=== PATIENT | female | born 2000 | race Caucasian/White ===

== ENCOUNTER 2024-12-19 23:49 | Emergency (ER) | payer MEDICAID ==
[~2024-12-19] VITALS: Ht 162.6 cm; Wt 56.0 kg
[2024-12-19 23:53] VITALS: O2SAT 99
[2024-12-20 01:49] LABS: BASOPHILS % 1.1 % (0.0-2.0); DIFFERENTIAL COMMENT 0; EOSINOPHILS % 0.2 % (0.0-5.0); HEMATOCRIT. 43.4 % (36.0-48.0); HEMOGLOBIN. 14.8 g/dL (12.0-16.0); LYMPHOCYTES % 23.7 % (20.0-50.0); MEAN CORPUSCULAR HEMOGLOBIN 34.1 pg (28.0-32.0); MEAN CORPUSCULAR VOLUME 100.4 fL (81.0-99.0); MEAN PLATELET VOLUME 7.9 fl (7.4-10.4); MONOCYTES % 5.2 % (2.0-8.0); NEUTROPHILS % 69.8 % (40.0-76.0); PLATELET 234 x1000/uL (130-400); RED BLOOD CELL COUNT 4.33 mill/uL (4.2-5.4); RED CELL DISTRIBUTION WIDTH 14.2 % (11.6-14.6); WHITE BLOOD COUNT 7.2 x1000/uL (4.5-11.0)
[2024-12-20 02:05] LABS: CHLORIDE 109 mEq/L (98-107); POTASSIUM 3.5 mEq/L (3.5-5.1); SODIUM 147 mEq/L (136-145)
[2024-12-20 02:06] LABS: CALCIUM 8.8 mg/dL (8.7-10.4); CARBON DIOXIDE 28 mEq/L (21-32)
[2024-12-20 02:11] LABS: CREATININE 0.8 mg/dL (0.6-1.0); GLUCOSE 82 mg/dL (70-105); UREA NITROGEN BLOOD 6 mg/dL (9-23)
[2024-12-20 02:12] LABS: HCG SCREEN NEGATIVE
[2024-12-20 02:13] LABS: ACETAMINOPHEN < 2 ug/mL (10-30)
[2024-12-20] MEDS: DIPHENHYDRAMINE 50MG/ML VIAL IM ONE (02:13)
[2024-12-20] MEDS: LORAZEPAM 2MG/ML INJ IM ONE (02:13)
[2024-12-20] MEDS: HALOPERIDOL LACTATE 5MG/ML VIAL IM ONE (02:14)
[2024-12-20 04:02] LABS: ETHANOL BLOOD 467 mg/dL (<10)
[2024-12-20 05:13] LABS: CLARITY URINE CLEAR (CLEAR); COLOR URINE YELLOW (YELLOW); GLUCOSE URINE NEGATIVE (NEGATIVE); KETONES URINE NEGATIVE (NEGATIVE); LEUKOCYTE ESTERASE URINE NEGATIVE (NEGATIVE); NITRITE URINE NEGATIVE (NEGATIVE); OCCULT BLOOD URINE NEGATIVE (NEGATIVE); PROTEIN URINE 1+ (NEGATIVE); SPECIFIC GRAVITY URINE 1.008 (1.005-1.030); UROBILINOGEN URINE 0.2 E.U./dL (0.2-1.0)
[2024-12-20 06:09] LABS: RBC URINE 0-2 /hpf (0-2); SQUAMOUS EPITHELIAL CELL URINE 1+ /lpf (RARE/1+)
[2024-12-20 06:10] LABS: BACTERIA URINE 2+
[2024-12-20 06:29] LABS: *AMPHETAMINES SCREEN URINE NEGATIVE (NEGATIVE); *BARBITURATES SCREEN URINE NEGATIVE (NEGATIVE); *BENZODIAZEPINES SCREEN URINE NEGATIVE (NEGATIVE); *COCAINE SCREEN URINE NEGATIVE (NEGATIVE); CANNABINOID URINE SCREEN PRESUMPTIVE POSITIVE (NEGATIVE); ECSTASY MDMA SCREEN URINE NEGATIVE (NEGATIVE); METHADONE URINE SCREEN NEGATIVE (NEGATIVE); OPIATES URINE SCREEN NEGATIVE (NEGATIVE); PHENCYCLIDINE URINE SCREEN NEGATIVE (NEGATIVE)
[2024-12-20 20:11] VITALS: BP 110/62; PULSE 86; RESP 16; TEMP 37; O2SAT 99
== END 2024-12-20 20:53 | disposition short-term general hospital (02) ==
LOC: ER 23:49
DX: R45.851 Suicidal ideations (principal); F31.9 Bipolar disorder, unspecified; I49.9 Cardiac arrhythmia, unspecified; Z20.822 Contact with and (suspected) exposure to COVID-19
CPT/HCPCS: 99285; 80305; 80048; 81003; 80307; 80329; 80320; 84703; 85025; 36415; 93005; 96372; 87426; J1200; J1630; J2060; G0480